=== PATIENT | male | born 1965 | race Two or more races ===

== ENCOUNTER → 2017-07-21 | Outpatient (CLI) | payer OTHER ==
[2017-07-21 09:01] LABS: CREATININE 0.7 mg/dL (0.7-1.3); GFR 118.9
[2017-07-21 09:01] LABS: BLOOD UREA NITROGEN 12 mg/dL (8-26)
[2017-07-21] MEDS: IOHEXOL 300 MG/ML 100ML VIAL. IV ×2 (09:38)
[2017-07-21] MEDS: IOHEXOL 240 MG/ML 50ML VIAL. PO ×2 (09:43)
== END | disposition home or self-care (01) ==
LOC: CT 08:09
DX: M51.37 Other intervertebral disc degeneration, lumbosacral region (principal); M47.896 Other spondylosis, lumbar region; E11.9 Type 2 diabetes mellitus without complications; Z87.891 Personal history of nicotine dependence
CPT/HCPCS: 36415; 74170; 82565; 84520; Q9966; Q9967